=== PATIENT | female | born 2000 | race African-American/Black ===

== ENCOUNTER 2024-07-05 13:29 | Emergency (ER) | payer SELFPAY ==
[2024-07-05 14:03] VITALS: BP 151/96; PULSE 75; TEMP 36.5; O2SAT 100; BMI 44.8
== END 2024-07-05 14:25 | disposition left against medical advice (07) ==
PROVIDERS: Emergency Provider Emergency Medicine
DX: Z53.21 Procedure and treatment not carried out due to patient leaving prior to being seen by health care provider (principal)